=== PATIENT | female | born 1955 | race Caucasian/White ===

== ENCOUNTER → 2024-08-02 | Outpatient (CLI) | payer MEDICARE, BC, SELFPAY ==
--- NOTE | 2024-08-02 14:45 | XR_ITS ---
Examination: MRI lumbar spine without contrast Date and time of exam: August 02, 2024 1524 hours INDICATIONS: Low back pain 30 years after falling from a horse COMPARISON: June 20, 2015 Technique: Multiple MRI axial and sagittal sections lumbar spine. Sagittal T2-weighted images, TR 3500, TE 118 T1 weighted transverse sections, TR 688 T8.5, T2-weighted sagittal sections T1 weighted sagittal sections TR 621, TE 30 T2 axial sections, TR 4, 190, TE 84. Findings: Line Installer Repairer film lumbar levoscoliosis 10 degrees No lumbar vertebral body fracture Mild to moderate lumbar spondylosis Adequate marrow signal lumbar vertebral bodies Diffuse lumbar disc desiccation Mild to moderate lumbar disc narrowing most prominent at L5-S1 No spondylolisthesis L5-S1 6 mm central 8 mm bilateral foraminal disc bulges producing mild bilateral L5 ganglionic compression L4-L5 4 mm central lumbar disc bulge L3-L4 6 mm central lumbar disc bulge L2-L3 5 mm central lumbar disc bulge L1-L2 no disc protrusion IMPRESSION: L5-S1 6 mm central 8 mm bilateral foraminal disc bulges producing mild bilateral L5 ganglionic compression L4-L5 4 mm central lumbar disc bulge L3-L4 6 mm central lumbar disc bulge L2-L3 5 mm central lumbar disc
== END | disposition home or self-care (01) ==
LOC: SMRI 14:23
PROVIDERS: PCP Specialist; Referring Provider Orthopaedic Surgery Orthopaedic Surgery of the Spine; Visit Provider Orthopaedic Surgery Orthopaedic Surgery of the Spine
DX: M51.369 Other intervertebral disc degeneration, lumbar region without mention of lumbar back pain or lower extremity pain (principal); M51.379 Other intervertebral disc degeneration, lumbosacral region without mention of lumbar back pain or lower extremity pain; G95.20 Unspecified cord compression
CPT/HCPCS: 72148

== ENCOUNTER → 2024-08-17 | Outpatient (CLI) | payer MEDICARE, BC, SELFPAY ==
[2024-08-17 12:22] LABS: Glucose Estimated Average 137 mg/dL (80-131); Hemoglobin A1C 6.4 % Hgb (4.8-6.0)
[2024-08-17 12:23] LABS: Alanine Aminotransferase 31 U/L (10-49); Albumin, Serum 4.7 gm/dL (3.4-4.8); Albumin/Globulin Ratio 2.6 (1.2-2.2); Alkaline Phosphatase 95 U/L (46-116); Anion Gap 8 (7-16); Aspartate Amino Transferase 33 U/L (0-34); BUN/Creatinine Ratio 13 Ratio (12-20); Bilirubin,Total 0.4 mg/dL (0.3-1.2); Blood Urea Nitrogen 9 mg/dL (9-23); Calcium 10.2 mg/dL (8.3-10.6); Calcium (Corrected) 10.2 mg/dL (8.5-10.1); Cardiac Risk Estimate 2.3 RATIO (3.7-5.6); Chloride 100 mMol/L (98-107); Cholesterol 145 mg/dL (132-200); Creatinine (Component) 0.7 mg/dL (0.6-1.3); Globulin 1.8 gm/dL (2.3-3.5); Glucose 64 mg/dL (74-106); HDL Cholesterol 64 mg/dL (40-60); LDL Cholesterol,Calculated 52 mg/dL (0-130); Osmolality,Calculated 266 (275-295); Potassium 5.6 mMol/L (3.4-5.1); Sodium 135 mMol/L (136-145); Total Protein 6.5 gm/dL (5.7-8.2); Triglycerides 145 mg/dL (30-150); eGFR > 60 See Note
[2024-08-17 12:25] LABS: Creatinine MALB Rnd Ur 72 mg/dL (30-125); Microalbumin Creat Ratio 24 mg/gCrea (<30); Microalbumin, Random Urine 17 mg/L (0-300)
== END | disposition home or self-care (01) ==
LOC: COPL 11:11
PROVIDERS: PCP Specialist; Referring Provider Specialist; Visit Provider Specialist
DX: E11.65 Type 2 diabetes mellitus with hyperglycemia (principal)
CPT/HCPCS: 36415; 80053; 80061; 82043; 82570; 83036

== ENCOUNTER → 2024-09-19 | Outpatient (CLI) | payer MEDICARE, BC, SELFPAY ==
--- NOTE | 2024-09-19 10:42 | XR_ITS ---
Examination: Sinus series 3 views TECHNIQUE: Lowell Phelps lateral sinus series 3 views Exam date and time: September 19, 2024 1217 hours INDICATIONS: Sinus pressure and pain beginning 6 months ago. FINDINGS: Opacity in the frontal and ethmoid air cells Mucosal thickening up to 12 mm in the maxillary antra Haziness also in the sphenoid air cells No fluid levels IMPRESSION: Chronic pansinusitis
== END | disposition home or self-care (01) ==
LOC: CDIM 10:34
PROVIDERS: PCP Specialist; Referring Provider Specialist; Visit Provider Specialist
DX: J32.4 Chronic pansinusitis (principal)
CPT/HCPCS: 70220

== ENCOUNTER → 2024-10-05 | Outpatient (CLI) | payer MEDICARE, BC, SELFPAY ==
[2024-10-05 12:27] LABS: Collection Type, Urine Clean Catch
[2024-10-05 13:26] LABS: Bilirubin,Urine Negative (Negative); Blood,Urine Negative (Negative); Clarity,Urine Turbid (Clear/Hazy); Color,Urine Yellow (Lt Yel-Yel); Glucose, Urine Negative (Negative); Ketones,Urine Negative (Negative); Leukocyte Esterase,Urine Positive (Negative); Nitrite,Urine Positive (Negative); PH,Urine 6.5 (5.0-7.0); Protein,Urine Trace (Neg - Trace); RBC,Urine 3 /hpf (0-3); Specific Gravity,Urine 1.014 (1.001-1.035); Squamous Epithelial Cell,Urine 1 /hpf (0-5); Urobilinogen,Urine Negative mg/dL (0.0-1.0); WBC,Urine 15 /hpf (0-5)
== END | disposition home or self-care (01) ==
LOC: SLDO 11:58
PROVIDERS: PCP Specialist; Referring Provider Specialist; Visit Provider Specialist
DX: Z01.89 Encounter for other specified special examinations (principal)
CPT/HCPCS: 81001; 87077; 87086; 87186

== ENCOUNTER → 2024-10-10 | Outpatient (CLI) | payer MEDICARE, BC, SELFPAY ==
[2024-10-10 10:32] LABS: Basophils % (Auto) 1 % (0-2.5); Eosinophils # (Auto) 0.1 Thou/mm3 (0.0-0.5); Eosinophils % (Auto) 2 % (0-10); Hematocrit 40.6 % (36.0-46.0); Hemoglobin 13.3 g/dL (12.0-16.0); Immature Granulocytes % (Auto) 0 % (0-0); Immature Granulocytes Auto 0.01 Thou/mm3 (0.00-0.00); Lymphocytes # (Auto) 1.1 Thou/mm3 (1.0-4.8); Lymphocytes % (Auto) 19 % (10-50); Mean Corpuscular HGB Conc 32.8 g/dl (31.0-37.0); Mean Corpuscular Hemoglobin 27.5 pg (25.0-35.0); Mean Corpuscular Volume 84 fL (80-100); Monocytes # (Auto) 0.4 Thou/mm3 (0.0-0.8); Monocytes % (Auto) 8 % (0-12); Neutrophils % (Auto) 70 % (37-80); Nucleated Red Blood Cell % 0 /100 WBC (0); Platelet Count 130 Thou/mm3 (140-440); RDW Standard Deviation 43.8 fL (36.4-46.3); Red Blood Count 4.83 Miln/mm3 (4.00-5.20); White Blood Count 5.7 Thou/mm3 (3.6-11.0)
[2024-10-10 10:34] LABS: INR 1.1 (0.9-1.3); Prothrombin Time 11.6 Seconds (9.0-12.2)
[2024-10-10 11:07] LABS: Alanine Aminotransferase 24 U/L (10-49); Albumin, Serum 4.2 gm/dL (3.4-4.8); Alkaline Phosphatase 97 U/L (46-116); Anion Gap 8 (7-16); Aspartate Amino Transferase 26 U/L (0-34); BUN/Creatinine Ratio 21 Ratio (12-20); Bilirubin,Total 0.4 mg/dL (0.3-1.2); Blood Urea Nitrogen 15 mg/dL (9-23); Calcium 9.9 mg/dL (8.3-10.6); Calcium (Corrected) 9.9 mg/dL (8.5-10.1); Carbon Dioxide 28.1 mMol/L (20.0-31.0); Chloride 102 mMol/L (98-107); Creatinine (Component) 0.7 mg/dL (0.6-1.3); Globulin 2.1 gm/dL (2.3-3.5); Glucose 147 mg/dL (74-106); Osmolality,Calculated 279 (275-295); Sodium 138 mMol/L (136-145); Total Protein 6.3 gm/dL (5.7-8.2); eGFR > 60 See Note
[2024-10-10 11:33] LABS: Hepatitis B Surface Ab NonReact(Not Immune) (Immune); Hepatitis C Antibody Non Reactive (Non React)
[2024-10-12 17:52] LABS: Hepatitis B Virus DNA* NOT DETECTED
[2024-10-13 07:03] LABS: Hepatitis B DNA PCR NOT DETECTED Log IU/mL
== END | disposition home or self-care (01) ==
PROVIDERS: PCP Specialist; Referring Provider Internal Medicine Gastroenterology; Visit Provider Internal Medicine Gastroenterology
DX: K76.0 Fatty (change of) liver, not elsewhere classified (principal); K74.60 Unspecified cirrhosis of liver
CPT/HCPCS: 36415; 80053; 82105; 85025; 85610; 86706; 86803; 87517

== ENCOUNTER → 2024-11-03 | Outpatient (CLI) | payer MEDICARE, BC, SELFPAY ==
--- NOTE | 2024-11-03 11:30 | XR_ITS ---
Examination: CT abdomen with intravenous contrast CT pelvis with intravenous contrast 2-D coronal reconstructions 2-D sagittal reconstructions Date and time of exam:November 03, 2024 1211 hrs. Indications: Elevated liver enzymes on laboratory examination 18 months ago. CTDI: vol (mGy) 15.5 DLP: (mGycm) 885 Technique: Multiple axial sections of the abdomen and pelvis have been obtained. 64 slice high-resolution scanner used. 3 mm axial sections have been obtained, post intravenous injection 60 cc [id number] 2-D sagittal, coronal reconstructions obtained. Low dose protocols were performed. One or more of the following dose reduction techniques were used; automated exposure control, adjustment of the mA and/or KV according to patient size, use of iterative reconstruction technique. Findings: No focal liver or splenic lesions Absent gallbladder No pancreatic or adrenal mass 38 mm fat-containing umbilical hernia Mild bilateral renal parenchymal scar formation Abdominal aorta is not enlarged The distal appendix, coronal image 71, is fluid-filled and thickened to 12 mm without definite inflammatory change No diverticulitis Atrophic uterus 22 mm right adnexal cyst Urinary bladder intact Advanced degenerative disc disease L5-S1 Impression: Findings consistent with mucocele appendix, no obvious inflammatory change surrounding the appendix, the appearance should be clinically correlated No bowel obstruction Recommend pelvic sonography to assess 22 mm right adnexal cyst
== END | disposition home or self-care (01) ==
PROVIDERS: PCP Internal Medicine Gastroenterology; Referring Provider Internal Medicine Gastroenterology; Visit Provider Internal Medicine Gastroenterology
DX: E27.8 Other specified disorders of adrenal gland (principal)
CPT/HCPCS: 74177; A4649; Q9967

== ENCOUNTER → 2024-11-11 | Outpatient (CLI) | payer MEDICARE, BC, SELFPAY ==
--- NOTE | 2024-11-11 10:00 | XR_ITS ---
Examination: CT chest, without intravenous contrast. Sagittal and coronal 2-D reconstructions. Exam date and time: November 11, 2024 1018 hours Comparison May 02, 2024 INDICATIONS: CT chest May 02, 2024 bilateral subcentimeter pulmonary nodules CTDI:vol (mGy) 14.5 DLP: (mGycm) 516 Technique: Multiple 3.0 mm axial sections of the chest to been obtained. Bone and lung density settings are obtained. Sagittal and coronal 2-D reconstructions have been obtained. Low dose protocols were performed. One or more of the following dose reduction techniques were used; automated exposure control, adjustment of the mA and/or KV according to patient size, use of iterative reconstruction technique. Findings: No thoracic aortic aneurysm dilatation Pulmonary artery segments are not enlarged Significant calcification left main left anterior descending coronary artery No paratracheal tracheobronchial or bronchopulmonary adenopathy Stable numerous subcentimeter pulmonary nodules No new pulmonary nodules Absent gallbladder No focal liver or splenic lesion IMPRESSION: Stable multiple bilateral subcentimeter pulmonary nodules
== END | disposition home or self-care (01) ==
LOC: CCTX 09:48
PROVIDERS: PCP Specialist; Referring Provider Specialist; Visit Provider Specialist
DX: R91.8 Other nonspecific abnormal finding of lung field (principal)
CPT/HCPCS: 71250

== ENCOUNTER → 2024-12-22 | Outpatient (CLI) | payer MEDICARE, BC, SELFPAY ==
[2024-12-22 14:43] LABS: Glucose Estimated Average 137 mg/dL (80-131); Hemoglobin A1C 6.4 % Hgb (4.8-6.0)
[2024-12-22 14:46] LABS: Alanine Aminotransferase 23 U/L (10-49); Albumin, Serum 4.5 gm/dL (3.4-4.8); Alkaline Phosphatase 85 U/L (46-116); Anion Gap 6 (7-16); Aspartate Amino Transferase 30 U/L (0-34); BUN/Creatinine Ratio 18 Ratio (12-20); Bilirubin,Total 0.5 mg/dL (0.3-1.2); Blood Urea Nitrogen 14 mg/dL (9-23); Calcium 9.7 mg/dL (8.3-10.6); Calcium (Corrected) 9.7 mg/dL (8.5-10.1); Carbon Dioxide 28.6 mMol/L (20.0-31.0); Chloride 102 mMol/L (98-107); Cholesterol 128 mg/dL (132-200); Creatinine (Component) 0.8 mg/dL (0.6-1.3); Free T3 2.9 pg/mL (2.3-4.2); Free T4 (Free Thyroxine) 1.13 ng/dL (0.89-1.76); Globulin 2.3 gm/dL (2.3-3.5); Glucose 128 mg/dL (74-106); HDL Cholesterol 63 mg/dL (40-60); LDL Cholesterol,Calculated 39 mg/dL (0-130); Osmolality,Calculated 276 (275-295); Sodium 137 mMol/L (136-145); Thyroid Stimulating Hormone 2.13 uIU/mL (0.55-4.78); Total Protein 6.8 gm/dL (5.7-8.2); Triglycerides 132 mg/dL (30-150); eGFR > 60 See Note
[2024-12-22 14:46] LABS: Creatinine MALB Rnd Ur 79 mg/dL (30-125); Microalbumin Creat Ratio 39 mg/gCrea (<30); Microalbumin, Random Urine 31 mg/L (0-300)
== END | disposition home or self-care (01) ==
PROVIDERS: PCP Specialist; Referring Provider Specialist; Visit Provider Specialist
DX: E11.65 Type 2 diabetes mellitus with hyperglycemia (principal); E78.2 Mixed hyperlipidemia; E03.9 Hypothyroidism, unspecified
CPT/HCPCS: 36415; 80053; 80061; 82043; 82570; 83036; 84439; 84443; 84481

== ENCOUNTER → 2025-01-12 | Outpatient (CLI) | payer MEDICARE, BC, SELFPAY ==
--- NOTE | 2025-01-12 10:00 | XR_ITS ---
Examination: Transvaginal ultrasound of the pelvis, complete Technique: Transvaginal sonographic images pelvis performed using ball scale imaging Exam date and time: January 12, 2025 1019 hours INDICATIONS: CT pelvis November 03, 2024 22 mm right adnexal cystic mass. FINDINGS: Uterus 6.5 cm endometrial stripe 0.5 cm Fluid in the endometrium No uterine mass Right ovary 3.2 cm arterial flow 3.0 x 2.3 cm cyst Left ovary obscured by bowel gas IMPRESSION: Right ovarian simple cyst 3.0 x 1.8 x 2.3 cm
== END | disposition home or self-care (01) ==
LOC: CDIM 09:48
PROVIDERS: PCP Specialist; Referring Provider Specialist; Visit Provider Specialist
DX: N83.291 Other ovarian cyst, right side (principal)
CPT/HCPCS: 76830

== ENCOUNTER 2025-03-15 13:04 | Emergency (ER) | payer MEDICARE, BC, SELFPAY ==
[2025-03-15 13:07] VITALS: BMI 36.4
--- NOTE | 2025-03-15 13:20 | PD.EDADULT ---
ED General RME/HPI General Chief complaint: Headache Stated complaint: SENT BY OUTPATIENT RAD. FOR ABNORMAL HEAD CT Time Seen by Provider: 03/15/25 13:19 Arrival date/time: 03/15/25 13:04 RME / HPI RME / HPI narrative: DR. ZAMORA MAIN ED EVALUATION: Related Data Home Medications ?Medication ?Instructions ?Recorded ?Confirmed pregabalin 75 mg capsule (Lyrica) 200 mg PO Q8HR #0 caps 07/10/14 11/30/23 metoprolol succinate 25 mg 50 mg PO HS ##0 07/30/15 11/30/23 tablet,extended release 24 hr (Toprol XL) duloxetine 60 mg capsule,delayed 60 mg PO QPM 01/03/19 11/30/23 release aspirin 81 mg tablet 81 mg PO QDAY 08/24/23 11/30/23 levothyroxine 25 mcg tablet 25 mcg PO QDAY 08/24/23 11/30/23 metformin 500 mg tablet 1,000 mg PO BID 08/24/23 11/30/23 rosuvastatin 10 mg tablet 10 mg PO QDAY 11/30/23 11/30/23 Allergies Allergy/AdvReac Type Severity Reaction Status Date / Time bacitracin Allergy Severe RED/ Verified 11/30/23 09:28 SWELLING gramicidin D Allergy Severe RED/ Verified 11/30/23 09:28 SWELLING neomycin Allergy Severe RED/ Verified 11/30/23 09:28 SWELLING polymyxin B Allergy Severe RED/ Verified 11/30/23 09:28 SWELLING Sulfa (Sulfonamide Allergy Severe SHORTNESS Verified 11/30/23 09:28 Antibiotics) OF BREATH/ RASH naproxen Allergy Mild RASH Verified 11/30/23 09:28 sulfamethoxazole Allergy Mild THROAT RAW Verified 11/30/23 09:28 trimethoprim Allergy Mild THROAT RAW Verified 11/30/23 09:28 Discharge Plan Prescriptions/Referrals Prescriptions/Med Rec: No Action pregabalin [Lyrica] 75 MG capsule 200 mg PO Q8HR Qty: 0 metoprolol succinate [Toprol XL] 25 MG tablet extended release 24 hr 50 mg PO HS Qty: 0 duloxetine 60 mg Capsule,Delayed Release(Dr/Ec) 60 mg PO QPM rosuvastatin 10 mg tablet 10 mg PO QDAY Patient Comments: TAKE 1 TABLET BY MOUTH EVERY DAY metformin 500 mg Tablet 1,000 mg PO BID levothyroxine 25 mcg Tablet 25 mcg PO QDAY aspirin 81 mg Tablet 81 mg PO QDAY Patient/Caregiver Discharge Instructions Print Language: Guatemalan MDM Narrative [facility] hospital course: Natasha Werner am scribing for and in the presence of Dr. Zamora.
[2025-03-15 13:21] VITALS: BP 129/73; PULSE 75; RESP 18; TEMP 36.6; O2SAT 97
--- NOTE | 2025-03-15 13:46 | PD.EDADULT ---
ED General RME/HPI General Chief complaint: Headache Stated complaint: SENT BY OUTPATIENT RAD. FOR ABNORMAL HEAD CT Time Seen by Provider: 03/15/25 13:19 Arrival date/time: 03/15/25 13:04 RME / HPI RME / HPI narrative: DR. ZAMORA MAIN ED EVALUATION: Related Data Home Medications ?Medication ?Instructions ?Recorded ?Confirmed pregabalin 75 mg capsule (Lyrica) 200 mg PO Q8HR #0 caps 07/10/14 11/30/23 metoprolol succinate 25 mg 50 mg PO HS ##0 07/30/15 11/30/23 tablet,extended release 24 hr (Toprol XL) duloxetine 60 mg capsule,delayed 60 mg PO QPM 01/03/19 11/30/23 release aspirin 81 mg tablet 81 mg PO QDAY 08/24/23 11/30/23 levothyroxine 25 mcg tablet 25 mcg PO QDAY 08/24/23 11/30/23 metformin 500 mg tablet 1,000 mg PO BID 08/24/23 11/30/23 rosuvastatin 10 mg tablet 10 mg PO QDAY 11/30/23 11/30/23 Allergies Allergy/AdvReac Type Severity Reaction Status Date / Time bacitracin Allergy Severe RED/ Verified 11/30/23 09:28 SWELLING gramicidin D Allergy Severe RED/ Verified 11/30/23 09:28 SWELLING neomycin Allergy Severe RED/ Verified 11/30/23 09:28 SWELLING polymyxin B Allergy Severe RED/ Verified 11/30/23 09:28 SWELLING Sulfa (Sulfonamide Allergy Severe SHORTNESS Verified 11/30/23 09:28 Antibiotics) OF BREATH/ RASH naproxen Allergy Mild RASH Verified 11/30/23 09:28 sulfamethoxazole Allergy Mild THROAT RAW Verified 11/30/23 09:28 trimethoprim Allergy Mild THROAT RAW Verified 11/30/23 09:28 Review of Systems Review of Systems Systems Reviewed: All systems reviewed, normal except as documented ED Exam Narrative Physical exam: Physical Exam GENERAL: NAD, AAOx3 HEENT: Moist mucosa. Eyes open, symmetrical, & clear, full range of motion of her neck, both ears with no evidence of otorrhagia CARDIO: Heart RRR, no obvious murmurs PULM: No noted coughing/dyspnea CTA B/L, no R/W/R GI: Abdomen soft, nondistended, no pain on palpation. BSx4 SKIN/MSK/EXT: No wounds/rashes/edema/amputations, no pain on palpation. Pedal pulses present B/L NEURO: AAOx3, no focal neuro deficits, able to move all 4 extremities Course Course Course Narrative: see MDM. Quality Measures none Vital Signs Vital signs: Vital Signs Temperature 98 F 03/15/25 13:21 Pulse Rate 75 03/15/25 13:21 Respiratory Rate 18 03/15/25 13:21 Blood Pressure 129/73 03/15/25 13:21 Pulse Oximetry (%) 97 03/15/25 13:21 Oxygen Delivery Method Room Air 03/15/25 13:21 Discharge Plan Plan Patient Disposition: HOME (Self Care) Prescriptions/Referrals Prescriptions/Med Rec: No Action pregabalin [Lyrica] 75 MG capsule 200 mg PO Q8HR Qty: 0 metoprolol succinate [Toprol XL] 25 MG tablet extended release 24 hr 50 mg PO HS Qty: 0 duloxetine 60 mg Capsule,Delayed Release(Dr/Ec) 60 mg PO QPM rosuvastatin 10 mg tablet 10 mg PO QDAY Patient Comments: TAKE 1 TABLET BY MOUTH EVERY DAY metformin 500 mg Tablet 1,000 mg PO BID levothyroxine 25 mcg Tablet 25 mcg PO QDAY aspirin 81 mg Tablet 81 mg PO QDAY Problem List Clinical Impression: Headache, Postconcussion syndrome, Intraparenchymal hemorrhage of brain due to trauma Impression comment: 9-day-old head trauma with Fabienne event amnesia small intraparenchymal hemorrhage. Deemed stable Patient/Caregiver Discharge Instructions Additional Instructions: Follow-up with Dr Griggs tomorrow in her office Follow-up with your primary care physician within 1 week of discharge Should any symptoms recur or worsen patient is instructed to return to the ER. Print Language: Prydein[place] Stand Alone Forms: María Award Info., Patient Portal Info Letter Attestation Attestation I, Nazario Zamora MD, have reviewed the history, exam, and assessment of the patient. I have evaluated the patient independently and agree with the plan of care documented by [ ]. All diagnostic studies were reviewed and discussed. I confirm the diagnosis as documented by the Resident. I was present during the Medical Decision Making for this patient. The patient's plan of care was created between myself and the Resident and consistent with our discussion of the patient's case. Note patient is a 9-day-old intraparenchymal hemorrhage from trauma on the right side of her brain with contusion to the left close likely coup contrecoup mechanism. Patient has no mental status changes the injury is 9 days old and patient is stable ambulatory. She has a relation with Dr. Griggs our neurologist and she was called and will see this patient tomorrow for reach since she is obviously been stable for 9 days it is unlikely this is going to progress any further. MDM Narrative MDM hospital course: 69-year-old female who presented after a fall. Patient states she fell around 9 days ago during hours of the night while going to the bathroom she fell and hit her head against the vanity and lost consciousness for about a minute according to the . She currently is having headache on her left frontal temporal region that she rates as a 8 out of 10 at the time of the fall but has since been improving. She denies any fever, chills, chest pain, shortness of breath, recent travel, sick contacts. Patient currently does not have any focal neurological deficits, full range of range of motion of her head and neck and has mild headache and no complaints at this time mild headache. 1420: Spoke to Dr. Griggs who stated she will see the patient in her office tomorrow and is okay to be discharged home. Patient safe to be discharged at this time.
[2025-03-15 15:26] VITALS: BP 130/75; PULSE 66; RESP 16; TEMP 36.7; O2SAT 98
== END 2025-03-15 15:27 | disposition home or self-care (01) ==
LOC: SERX 15:02
PROVIDERS: Emergency Provider Student in an Organized Health Care Education/Training Program; PCP Family Medicine
DX: S06.351A Traumatic hemorrhage of left cerebrum with loss of consciousness of 30 minutes or less, initial encounter (principal); F07.81 Postconcussional syndrome; W18.39XA Other fall on same level, initial encounter
CPT/HCPCS: 99283

== ENCOUNTER → 2025-03-15 | Outpatient (CLI) | payer MEDICARE, BC, SELFPAY ==
--- NOTE | 2025-03-15 12:31 | XR_ITS ---
Examination: CT brain head without contrast. 2-D sagittal coronal reconstructions Date and time of exam:March 15, 2025 1245 hours Comparison November 18, 2023 INDICATIONS: Patient fell 9 days ago with injury to the head, intermittent headaches CTDI: vol (mGy):52.6 DLP: (mGycm):1012 Technique: Multiple CT axial sections of the brain have been obtained, 5 mm slice thickness. Contrast has not been administered. 2-D sagittal, coronal reconstructions have been obtained Low dose protocols were performed. One or more of the following dose reduction techniques were used; automated exposure control, adjustment of the mA and/or KV according to patient size, use of iterative reconstruction technique. Findings: Small hyperdense areas in the right frontal lobe, axial images 12 through 15 Ventricles are not enlarged No mass effect upon the ventricular system Cranial vault intact IMPRESSION: Findings consistent with right frontal lobe hemorrhagic contusion, recommend close clinical observation and short-term follow-up CT brain scans
== END | disposition home or self-care (01) ==
PROVIDERS: PCP Specialist; Referring Provider Specialist; Visit Provider Specialist
DX: R55 Syncope and collapse (principal)
CPT/HCPCS: 70450

== ENCOUNTER → 2025-03-21 | Outpatient (CLI) | payer MEDICARE, BC, SELFPAY ==
[2025-03-21 13:00] LABS: Glucose Estimated Average 128 mg/dL (80-131); Hemoglobin A1C 6.1 % Hgb (4.8-6.0)
[2025-03-21 13:19] LABS: Alanine Aminotransferase 17 U/L (10-49); Albumin, Serum 4.4 gm/dL (3.4-4.8); Albumin/Globulin Ratio 1.8 (1.2-2.2); Alkaline Phosphatase 94 U/L (46-116); Anion Gap 8 (7-16); Aspartate Amino Transferase 24 U/L (0-34); BUN/Creatinine Ratio 14 Ratio (12-20); Bilirubin,Total 0.5 mg/dL (0.3-1.2); Blood Urea Nitrogen 11 mg/dL (9-23); Calcium 9.8 mg/dL (8.3-10.6); Calcium (Corrected) 9.8 mg/dL (8.5-10.1); Carbon Dioxide 28.0 mMol/L (20.0-31.0); Cardiac Risk Estimate 2.0 RATIO (3.7-5.6); Chloride 101 mMol/L (98-107); Cholesterol 131 mg/dL (132-200); Creatinine (Component) 0.8 mg/dL (0.6-1.3); Free T4 (Free Thyroxine) 1.17 ng/dL (0.89-1.76); Globulin 2.4 gm/dL (2.3-3.5); Glucose 132 mg/dL (74-106); HDL Cholesterol 66 mg/dL (40-60); LDL Cholesterol,Calculated 44 mg/dL (0-130); Osmolality,Calculated 275 (275-295); Potassium 5.8 mMol/L (3.4-5.1); Sodium 137 mMol/L (136-145); Thyroid Stimulating Hormone 2.56 uIU/mL (0.55-4.78); Total Protein 6.8 gm/dL (5.7-8.2); Triglycerides 107 mg/dL (30-150); eGFR > 60 See Note
== END | disposition home or self-care (01) ==
LOC: COPL 10:51
PROVIDERS: PCP Specialist; Referring Provider Specialist; Visit Provider Specialist
DX: E11.69 Type 2 diabetes mellitus with other specified complication (principal); E03.8 Other specified hypothyroidism
CPT/HCPCS: 36415; 80053; 80061; 82043; 82570; 83036; 84439; 84443

== ENCOUNTER → 2025-03-23 | Outpatient (CLI) | payer MEDICARE, BC, SELFPAY ==
[2025-03-23 16:47] LABS: Creatinine MALB Rnd Ur 41 mg/dL (30-125); Microalbumin Creat Ratio 27 mg/gCrea (<30); Microalbumin, Random Urine 11 mg/L (0-300)
== END | disposition home or self-care (01) ==
LOC: SLDO 13:51
PROVIDERS: PCP Specialist; Referring Provider Specialist; Visit Provider Specialist
DX: E11.69 Type 2 diabetes mellitus with other specified complication (principal)
CPT/HCPCS: 82043; 82570

== ENCOUNTER → 2025-03-30 | Outpatient (CLI) | payer MEDICARE, BC, SELFPAY ==
--- NOTE | 2025-03-30 12:00 | XR_ITS ---
Examination: CT brain head without contrast. 2-D sagittal coronal reconstructions Date and time of exam:March 30, 2025 1212 hours Comparison March 25, 2025 INDICATIONS: History right frontal lobe hemorrhagic contusion March 25, 2025 CTDI: vol (mGy):51.7 DLP: (mGycm):1055 Technique: Multiple CT axial sections of the brain have been obtained, 5 mm slice thickness. Contrast has not been administered. 2-D sagittal, coronal reconstructions have been obtained Low dose protocols were performed. One or more of the following dose reduction techniques were used; automated exposure control, adjustment of the mA and/or KV according to patient size, use of iterative reconstruction technique. Findings: No significant ventricular enlargement. Intra-axial or extra-axial hemorrhage density is not seen. No mass effect or midline shift Basal cisterns are not remarkable. Fourth ventricle is midline. Cranial vault intact. Impression: Negative for acute hemorrhage, mass effect or midline shift
[2025-03-30 13:34] LABS: Albumin, Serum 4.4 gm/dL (3.4-4.8); Anion Gap 5 (7-16); BUN/Creatinine Ratio 15 Ratio (12-20); Blood Urea Nitrogen 12 mg/dL (9-23); Calcium 9.7 mg/dL (8.3-10.6); Calcium (Corrected) 9.7 mg/dL (8.5-10.1); Carbon Dioxide 28.8 mMol/L (20.0-31.0); Chloride 101 mMol/L (98-107); Creatinine (Component) 0.8 mg/dL (0.6-1.3); Glucose 138 mg/dL (74-106); Osmolality,Calculated 271 (275-295); Phosphorous 3.5 mg/dL (2.4-5.1); Potassium 4.8 mMol/L (3.4-5.1); Sodium 135 mMol/L (136-145); eGFR > 60 See Note
== END | disposition home or self-care (01) ==
LOC: CCTX 11:29 → COPL 12:30
PROVIDERS: PCP Specialist; Referring Provider Psychiatry & Neurology Neurology; Visit Provider Radiology Diagnostic Radiology
DX: G44.319 Acute post-traumatic headache, not intractable (principal); E78.5 Hyperlipidemia, unspecified
CPT/HCPCS: 36415; 70450; 80069

== ENCOUNTER → 2025-05-18 | Outpatient (CLI) | payer MEDICARE, BC, SELFPAY ==
[2025-05-18 14:26] LABS: Collection Type, Urine Clean Catch
[2025-05-18 17:06] LABS: Bacteria,Urine 1+; Bilirubin,Urine Negative (Negative); Blood,Urine 1+ (Negative); Clarity,Urine Turbid (Clear/Hazy); Color,Urine Yellow (Lt Yel-Yel); Glucose, Urine Negative (Negative); Ketones,Urine Negative (Negative); Leukocyte Esterase,Urine Positive (Negative); Nitrite,Urine Positive (Negative); PH,Urine 6.5 (5.0-7.0); Protein,Urine 1+ (Neg - Trace); RBC,Urine 7 /hpf (0-3); Specific Gravity,Urine 1.010 (1.001-1.035); Squamous Epithelial Cell,Urine 12 /hpf (0-5); Urobilinogen,Urine Negative mg/dL (0.0-1.0); WBC,Urine 348 /hpf (0-5)
== END | disposition home or self-care (01) ==
LOC: SLDO 14:05
PROVIDERS: PCP Specialist; Referring Provider Specialist; Visit Provider Specialist
DX: N39.0 Urinary tract infection, site not specified (principal)
CPT/HCPCS: 81001; 87077; 87086; 87186

== ENCOUNTER → 2025-05-19 | Outpatient (CLI) | payer MEDICARE, BC, SELFPAY | END | disposition home or self-care (01) | LOC: SLDO 10:55 | PROVIDERS: Referring Provider Specialist; Visit Provider Specialist | DX: N39.0 Urinary tract infection, site not specified (principal) | CPT/HCPCS: 87077; 87086; 87186 ==

== ENCOUNTER → 2025-05-29 | Outpatient (CLI) | payer MEDICARE, BC, SELFPAY ==
--- NOTE | 2025-05-29 09:54 | XR_ITS ---
Examination: Retroperitoneal ultrasound, complete Technique: Multiple high resolution grayscale images of the retroperitoneum obtained, including kidneys and bladder. Exam date and time:May 29, 2025 1013 hours INDICATIONS: Recurrent urinary tract infections beginning 4 months ago FINDINGS: Right kidney 10.4 cm cortex 1.8 cm Left kidney 9.9 cm cortex 1.8 cm Moderate renal parenchymal scar formation, no hydronephrosis No bladder mass or bladder calculi, bladder prevoid 0.115 cc IMPRESSION: Moderate bilateral renal parenchymal scar formation No hydronephrosis or renal calculi
== END | disposition home or self-care (01) ==
LOC: CDIM 09:50
PROVIDERS: PCP Specialist; Referring Provider Specialist; Visit Provider Specialist
DX: N28.89 Other specified disorders of kidney and ureter (principal)
CPT/HCPCS: 76770

== ENCOUNTER → 2025-07-24 | Outpatient (CLI) | payer MEDICARE, BC, SELFPAY ==
[2025-07-24 12:21] LABS: Glucose Estimated Average 131 mg/dL (80-131); Hemoglobin A1C 6.2 % Hgb (4.8-6.0)
[2025-07-24 12:32] LABS: Alanine Aminotransferase 14 U/L (10-49); Albumin, Serum 4.4 gm/dL (3.4-4.8); Albumin/Globulin Ratio 2.6 (1.2-2.2); Alkaline Phosphatase 72 U/L (46-116); Anion Gap 6 (7-16); Aspartate Amino Transferase 18 U/L (0-34); BUN/Creatinine Ratio 9 Ratio (12-20); Bilirubin,Total 0.4 mg/dL (0.3-1.2); Blood Urea Nitrogen 7 mg/dL (9-23); Calcium 9.7 mg/dL (8.3-10.6); Calcium (Corrected) 9.7 mg/dL (8.5-10.1); Carbon Dioxide 26.8 mMol/L (20.0-31.0); Cardiac Risk Estimate 2.0 RATIO (3.7-5.6); Chloride 104 mMol/L (98-107); Cholesterol 118 mg/dL (132-200); Creatinine (Component) 0.8 mg/dL (0.6-1.3); Free T4 (Free Thyroxine) 1.29 ng/dL (0.89-1.76); Globulin 1.7 gm/dL (2.3-3.5); Glucose 127 mg/dL (74-106); HDL Cholesterol 59 mg/dL (40-60); LDL Cholesterol,Calculated 29 mg/dL (0-130); Osmolality,Calculated 273 (275-295); Potassium 5.1 mMol/L (3.4-5.1); Sodium 137 mMol/L (136-145); Thyroid Stimulating Hormone 2.65 uIU/mL (0.55-4.78); Total Protein 6.1 gm/dL (5.7-8.2); Triglycerides 149 mg/dL (30-150); eGFR > 60 See Note
[2025-07-24 14:47] LABS: Creatinine MALB Rnd Ur 34 mg/dL (30-125); Microalbumin Creat Ratio 68 mg/gCrea (<30); Microalbumin, Random Urine 23 mg/L (0-300)
== END | disposition home or self-care (01) ==
LOC: COPL 11:37
PROVIDERS: PCP Specialist; Referring Provider Specialist; Visit Provider Specialist
DX: E11.65 Type 2 diabetes mellitus with hyperglycemia (principal); E78.2 Mixed hyperlipidemia; E03.9 Hypothyroidism, unspecified
CPT/HCPCS: 36415; 80053; 80061; 82043; 82570; 83036; 84439; 84443

== ENCOUNTER → 2025-08-08 | Outpatient (CLI) | payer MEDICARE, BC, SELFPAY ==
[2025-08-08 13:08] LABS: COVID-19 Antigen (In-House) Negative (Negative); Influenza A Ag Negative; Influenza B Ag Negative
== END | disposition home or self-care (01) ==
LOC: COPL 10:39
PROVIDERS: PCP Specialist; Referring Provider Specialist; Visit Provider Specialist
DX: R05.8 Other specified cough (principal); Z20.828 Contact with and (suspected) exposure to other viral communicable diseases
CPT/HCPCS: 87502; 87811